=== PATIENT | female | born 1985 | race Caucasian/White ===

== ENCOUNTER 2022-05-08 22:45 | Emergency (ER) | payer SELFPAY ==
[2022-05-09] MEDS ORDERED: Morphine 4 MG/ML VIAL ONE ×2 (00:38→02:38)
[2022-05-09] MEDS ORDERED: Ondansetron PF 4 MG/2 ML Vial ONE (00:38)
[2022-05-09] MEDS ORDERED: PROPOFOL 0 ML ONE (01:23)
[2022-05-09] MEDS ORDERED: PROPOFOL 20 ML ONE (01:24)
[2022-05-09] MEDS ORDERED: HYDROcodone/Acetaminophen 5/325 mg Tablet ONE (01:49)
== END 2022-05-09 03:43 | disposition home or self-care (01) ==
LOC: ERS 22:45 → EDSEX 22:45 → ERS 05-09 03:43
DX: S82.832A Other fracture of upper and lower end of left fibula, initial encounter for closed fracture (principal); S93.05XA Dislocation of left ankle joint, initial encounter; X58.XXXA Exposure to other specified factors, initial encounter
CPT/HCPCS: 28540; 96374; 96375; 96376; 99152; J2270; J2405; J2704

== ENCOUNTER 2022-05-14 12:26 | Emergency (ER) | payer BC, SELFPAY ==
[2022-05-14] MEDS ORDERED: HYDROcodone/Acetaminophen 10/325 mg Tablet ONE (14:55)
== END 2022-05-14 15:10 | disposition home or self-care (01) ==
LOC: ERS 12:26
DX: S82.832A Other fracture of upper and lower end of left fibula, initial encounter for closed fracture (principal); S90.02XA Contusion of left ankle, initial encounter; X58.XXXA Exposure to other specified factors, initial encounter

== ENCOUNTER 2022-05-18 10:08 | Outpatient (CLI) | payer BC | END 2022-05-18 10:09 | disposition home or self-care (01) | LOC: LABBT 10:08 | PROVIDERS: ATTEND Orthopaedic Surgery | DX: S82.852A Displaced trimalleolar fracture of left lower leg, initial encounter for closed fracture (principal); Z20.822 Contact with and (suspected) exposure to COVID-19 | CPT/HCPCS: 87811 ==

== ENCOUNTER 2022-05-19 10:36 | Day surgery (SDC) | payer BC, MEDICAID ==
[2022-05-18 13:00] VITALS: BMI 47.2
[2022-05-19] MEDS ORDERED: Midazolam HCl 2 mg/2 ml Vial ONE (13:08)
[2022-05-19] MEDS ORDERED: Bupivacaine PF 0.5% 30 ML VIAL ONE (14:04)
[2022-05-19] MEDS ORDERED: Dexmedetomidine 200 MCG/2 ML VIAL ONE (14:05)
[2022-05-19] MEDS ORDERED: Sodium Chloride 0.9% 100 ML ONE (14:08)
[2022-05-19] MEDS ORDERED: CEFAZOLIN 2 GM VIAL ONE (14:08)
[2022-05-19] MEDS ORDERED: fentaNYL Citrate/PF 100 MCG/2 ML SYRINGE ONE ×3 (14:13→15:57)
[2022-05-19] MEDS ORDERED: Ondansetron PF 4 MG/2 ML Vial ONE (14:22)
[2022-05-19] MEDS ORDERED: Esmolol 100 MG/10 ML VIAL ONE (14:22)
[2022-05-19] MEDS ORDERED: Ketorolac Tromethamine 30 MG/ML VIAL ONE (14:22)
[2022-05-19] MEDS ORDERED: PROPOFOL 200 MG/20 ML VIAL ONE (14:22)
[2022-05-19] MEDS ORDERED: Dexamethasone 20 MG/5 ML VIAL ONE (14:22)
[2022-05-19] MEDS ORDERED: HYDROmorphone 0.5 MG/0.5 ML SYRINGE ONE ×3 (16:12→16:42)
[2022-05-19] MEDS ORDERED: HYDROcodone/Acetaminophen 5/325 mg Tablet ONE (17:15)
== END 2022-05-19 18:30 | disposition home or self-care (01) ==
LOC: SDC 10:36
PROVIDERS: ATTEND Orthopaedic Surgery
DX: S82.852A Displaced trimalleolar fracture of left lower leg, initial encounter for closed fracture (principal); Z79.899 Other long term (current) drug therapy; W10.9XXA Fall (on) (from) unspecified stairs and steps, initial encounter
CPT/HCPCS: 76000; C1713; J0690; J1100; J1170; J1885; J2250; J2405; J2704; J3490; S0020

== ENCOUNTER 2023-06-22 16:58 | Emergency (ER) | payer BC, OTHER | END 2023-06-22 20:20 | disposition home or self-care (01) | LOC: ERS 16:58 | DX: H66.93 Otitis media, unspecified, bilateral (principal) | CPT/HCPCS: 87081; 87430; 99283 ==

== ENCOUNTER 2023-08-14 11:00 | Emergency (ER) | payer OTHER ==
[2023-08-14] MEDS ORDERED: LORazepam 2 MG/ML SYR.(CARPUJECT) ONE (11:54)
[2023-08-14 13:18] LABS: #Eosinphils 0.2 thou/uL (0.0-0.7); #Monocytes 0.5 thou/uL (0.11-0.59); #Neutrophils 3.4 thou/uL (1.40-6.50); %Basophils 0.6 % (0.0-1.0); %Eosinophils 2.8 % (0.0-10.0); %Lymphocytes 39.9 % (21.0-51.0); %Neutrophils 49.6 % (42.0-75.0); Hematocrit 41.7 % (36.0-47.0); Hemoglobin 13.5 g/dL (12.0-16.0); Mean Corpuscular HGB CONC 32.4 g/dL (32.0-36.0); Mean Corpuscular Hemoglobin 26.6 pg (27.0-31.0); Mean Corpuscular Volume 82.2 fl (78.0-98.0); Mean Platelet Volume 11.1 fL (7.4-10.4); Platelet Count 252 10x3/uL (130-400); RBC Distribution Width 14.7 % (11.5-14.5); Red Blood Cell (RBC) Count 5.07 mill/uL (4.20-5.40); White Blood Cell (WBC) Count 6.8 10x3/uL (4.8-10.8)
[2023-08-14 13:34] LABS: Acetaminophen Less than 10 mcg/mL (10.0-30.0); Alcohol Less than 10.0 mg/dL (Less than 10); Salicylate Less than 8.0 mg/dL (15.0-30.0)
[2023-08-14 13:35] LABS: ALT (SGPT) 15 U/L (8-55); AST (SGOT) 24 U/L (5-34); Albumin 4.2 g/dL (3.5-5.0); Alkaline Phosphatase 81 U/L (40-110); Anion Gap 14 mmol/L (10-20); BUN (Urea Nitrogen) 11 mg/dL (7.0-18.7); Bilirubin, Total 0.9 mg/dL (0.2-1.2); Calc. Creatinine Clearance 0 mL/min (70-130); Calcium 9.4 mg/dL (7.8-10.44); Carbon Dioxide 20 mmol/L (22-29); Chloride 105 mmol/L (98-107); Estimated GFR 110; Globulin 2.9 g/dL (2.4-3.5); Glucose 76 mg/dL (70-105); Potassium 3.6 mmol/L (3.5-5.1); Protein, Total 7.1 g/dL (6.0-8.3); Sodium 135 mmol/L (136-145)
== END 2023-08-14 16:10 | disposition home or self-care (01) ==
LOC: ERS 11:00
DX: S00.411A Abrasion of right ear, initial encounter (principal); S10.91XA Abrasion of unspecified part of neck, initial encounter; R20.2 Paresthesia of skin; F31.9 Bipolar disorder, unspecified; F17.290 Nicotine dependence, other tobacco product, uncomplicated; X83.8XXA Intentional self-harm by other specified means, initial encounter
CPT/HCPCS: 36415; 80053; 80307; 84443; 85025; 96372; 99285; J2060